=== PATIENT | male | born 1995 ===

== ENCOUNTER 2018-03-16 18:06 | Emergency (ER) | payer OTHER, MEDICAID ==
[2018-03-16 18:11] VITALS: BP 107/62; PULSE 60; TEMP 98.7; O2SAT 100
[2018-03-16] MEDS ORDERED: Lidocaine 2% MPF (5 ml) Inj ONE (18:31)
--- NOTE | 2018-03-16 18:31 | C.PDOC ---
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 Patient believes his tetanus is up to date. Otherwise patient denies any obvious deformity, weakness, or sensorivascular deficits. Time Seen by Provider: 03/16/18 18:07 Chief Complaint (Nursing): Abnormal Skin Integrity History Per: Patient History/Exam Limitations: no limitations Onset/Duration Of Symptoms: Hrs Current Symptoms Are (Timing): Still Present Past Medical History Reviewed: Historical Data, Nursing Documentation, Vital Signs Vital Signs: Last Vital Signs Temp 98.7 F 03/16/18 18:09 Pulse 60 03/16/18 18:09 Resp 17 03/16/18 18:09 BP 107/62 03/16/18 18:09 Pulse Ox 100 03/16/18 18:33 - Medical History PMH: No Chronic Diseases Family History: States: No Known Family Hx - Social History Hx Alcohol Use: No Hx Substance Use: No - Immunization History Hx Tetanus Toxoid Vaccination: Yes (less than 5 yrs) Hx Influenza Vaccination: No Hx Pneumococcal Vaccination: No Review Of Systems Except As Marked, All Systems Reviewed And Found Negative. Skin: Positive for: Lesions (finger laceration) Neurological: Negative for: Weakness, Numbness, Incoordination Physical Exam - Physical Exam Appears: Well, Non-toxic, No Acute Distress Skin: Warm, Dry, Other (2 cm skin avulsion to the dorsal aspect of right middle finger over the 3rd DIPJ, with mild oozing. NO palpable defomrity.) Extremity: Normal ROM (with FROM of Right hand, no neuorvascular deficist distally to injury.), No Tenderness, Capillary Refill (less than 2sec to right wrist), No Deformity, No Swelling Pulses: Left Radial: Normal, Right Radial: Normal Neurological/Psych: Oriented x3, Normal Speech, Normal Motor, Normal Sensation, Normal Reflexes ED Course And Treatment O2 Sat by Pulse Oximetry: 100 (RA) Pulse Ox Interpretation: Normal Progress Note: Laceration repaired without difficulty, tolerated well by patient. tetanus UTD. On re-eval, Right hand: FAROM, no neurovascular deficits. Sterile wound dressing applied to laceration. Patient instructed on wound care and advised to follow up with PMD in 2 days for wound check.return to Ed if any sign of infection. Laceration - Laceration Repair right 3rd digit Wound Length (In cm): 2 Description Of Wound: Clean (skin avulsion) Anesthesia: Lidocaine 2% Wound Examination: Irrigated With Saline, No FB With Wound Exploration, No Tendon Injury With Wound Exploration Wound Closure: Suture (#3) Suture Technique And Material Used: Interrupted, Nylon (5-0) Wound Complexity: Simple Disposition Counseled Patient/Family Regarding: Diagnosis, Need For Followup - Disposition Referrals: Shaik Castro MD [Staff Provider] - Disposition: HOME/ ROUTINE Disposition Time: 18:50 Condition: STABLE Additional Instructions: Light duty to finger Avoid prolong water exposure Suture removal in 7 days Follow up with PMD in 2 days for wound check as need return to Ed if any sign of infection-fever, wound pain, redness or discharges. 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 - Scribe Statement The provider has reviewed the documentation as recorded by the Scribe (Yessica Hwang) All medical record entries made by the Scribe were at my direction and personally dictated by me. I have reviewed the chart and agree that the record accurately reflects my personal performance of the history, physical exam, medical decision making, and the department course for this patient. I have also personally directed, reviewed, and agree with the discharge instructions and disposition.
[2018-03-16] MEDS ORDERED: Bacitracin 500 Units/gm Oint Foilpak UD TOP ONE (18:58)
[2018-03-16] MEDS ORDERED: Lidocaine 2% Inj (20ml) INFIL ONE (18:58)
[2018-03-16] MEDS ORDERED: Bacitracin 500 Units/gm Oint Foilpak UD ONE (19:05)
[2018-03-16 19:25] VITALS: RESP 20
== END 2018-03-16 19:24 | disposition home or self-care (01) ==
LOC: C.ER 18:06
DX: S61.212A Laceration without foreign body of right middle finger without damage to nail, initial encounter (principal); W45.8XXA Other foreign body or object entering through skin, initial encounter; Y92.89 Other specified places as the place of occurrence of the external cause; Y99.0 Civilian activity done for income or pay

== ENCOUNTER 2018-03-26 18:12 | Emergency (ER) | payer MEDICAID, OTHER ==
[2018-03-26 18:55] VITALS: BP 103/63; PULSE 60; RESP 18; TEMP 98.7; O2SAT 95
--- NOTE | 2018-03-26 19:28 | C.PDOC ---
History Of Present Illness 22 y/o male presents to ED for suture removal to right third finger put on after sustaining laceration. Patient denies drainage, tingling or any other physical complaint at this time. Time Seen by Provider: 03/26/18 18:48 Chief Complaint (Nursing): Suture/Staple Removal History Per: Patient History/Exam Limitations: no limitations Onset/Duration Of Symptoms: Hrs Current Symptoms Are (Timing): Still Present Past Medical History Reviewed: Historical Data, Nursing Documentation, Vital Signs Vital Signs: Last Vital Signs Temp 98.7 F 03/26/18 18:50 Pulse 60 03/26/18 18:50 Resp 18 03/26/18 18:50 BP 103/63 03/26/18 18:50 Pulse Ox 95 03/26/18 19:47 - Medical History PMH: No Chronic Diseases Surgical History: No Surg Hx Family History: States: No Known Family Hx - Social History Hx Alcohol Use: No Hx Substance Use: No - Immunization History Hx Tetanus Toxoid Vaccination: Yes (less than 5 yrs) Hx Influenza Vaccination: No Hx Pneumococcal Vaccination: No Review Of Systems Musculoskeletal: Positive for: Hand Pain Skin: Negative for: Rash, Bruising Neurological: Negative for: Numbness Physical Exam - Physical Exam Appears: Non-toxic, No Acute Distress Skin: Warm, Dry, Other (3 sutures on partially healed abrasion to right 3rd finger. No drainage) Head: Atraumatic, Normacephalic Eye(s): bilateral: Normal Inspection Oral Mucosa: Moist Extremity: Normal ROM, Capillary Refill (<2 seconds), No Deformity Pulses: Right Radial: Normal Neurological/Psych: Oriented x3, Normal Motor, Normal Sensation ED Course And Treatment O2 Sat by Pulse Oximetry: 95 (RA) Pulse Ox Interpretation: Normal Progress Note: 3 sutures removed , wound still with a partially healing abrasion , but appears well, no erythema, swelling or bleeding. Area cleaned and dressed with bacitracin Disposition Counseled Patient/Family Regarding: Diagnosis, Need For Followup, Rx Given - Disposition Referrals: 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 - Scribe Statement The provider has reviewed the documentation as recorded by the Alleyibraquel Pierce All medical record entries made by the Hemanth were at my direction and personally dictated by me. I have reviewed the chart and agree that the record accurately reflects my personal performance of the history, physical exam, medical decision making, and the department course for this patient. I have also personally directed, reviewed, and agree with the discharge instructions and disposition.
== END 2018-03-26 19:58 | disposition home or self-care (01) ==
LOC: C.ER 18:12
DX: Z48.02 Encounter for removal of sutures (principal)